=== PATIENT | female | born 1975 | race Caucasian/White ===

== ENCOUNTER 2017-07-11 03:49 | Emergency (ER) | payer OTHER ==
[~2017-07-11] VITALS: Ht 160 cm; Wt 49.9 kg
[2017-07-11] MEDS ORDERED: Bactrim 400-801 EACH PO (04:38)
== END 2017-07-11 04:50 | disposition home or self-care (01) ==
LOC: ER 03:49
DX: L03.012 Cellulitis of left finger (principal); F41.9 Anxiety disorder, unspecified; Z87.891 Personal history of nicotine dependence; Z88.1 Allergy status to other antibiotic agents; Z88.0 Allergy status to penicillin
CPT/HCPCS: 10060; 99283